=== PATIENT | male | born 1990 | race Caucasian/White ===

== ENCOUNTER 2016-03-26 03:45 | Emergency (ER) | payer SELFPAY ==
[~2016-03-26] VITALS: Ht 180.3 cm; Wt 90.5 kg
[2016-03-26 03:53] VITALS: BP 138/78; PULSE 72; RESP 22; TEMP 98.2; O2SAT 96
--- NOTE | 2016-03-26 04:24 | PD ---
HPI Chief Complaint: Laceration/Skin Injury Time Seen by Provider: 04:22 Travel History International Travel<30 days: No Contact w/Intl Traveler<30days: No Traveled to known affect area: No History of Present Illness HPI 25-year-old [place] white male presents to emergency department for evaluation of a right hand injury which occurred prior to arrival. The patient states that he had put his hand through a glass window. He denies any numbness or tingling. He did sustain multiple lacerations. He also complaints of pain throughout the hand. He is up-to-date with immunizations. States the pain is [id number]. He denies any weakness. PFSH Past Medical History Medical History: Denies Significant Hx Diminished Hearing: No Immunizations Current: Yes Tetanus Vaccination: < 5 Years Past Surgical History Surgical History: No Previous Surgery Social History Alcohol Use: Yes (OCC) Tobacco Use: No Substance Use: No Allergies-Medications (Allergen,Severity, Reaction): Coded Allergies: No Known Allergies (Unverified , 03/26/16) Reported Meds & Prescriptions Reported Meds & Active Scripts Active Diclofenac Sodium DR (Diclofenac Sodium) 50 Mg Tabdr 50 Mg PO TID Keflex (Cephalexin) 500 Mg Cap 500 Mg PO Q6H Review of Systems Except as stated in HPI: all other systems reviewed are Neg Physical Exam Narrative GENERAL: This is a well-nourished, well-developed patient, in no apparent distress. Smells of EtOH and appears intoxicated. SKIN: No rashes, ecchymoses or lesions. Warm and dry. HEAD: Atraumatic. Normocephalic. EYES: PERRL, EOMI, no discharge or injection. No scleral icterus. EARS: Clear NOSE: Nasal turbinates appear normal. THROAT: Mucosa pink and moist. Airway patent. NECK: Trachea midline. supple, moves head freely. LUNGS: Clear to auscultation. CV: Regular in rhythm. ABDOMEN: Soft nontender. EXT: No clubbing cyanosis or edema. Examination of the right hand reveals multiple lacerations over the dorsal surface of the fingers and susan. He is able to open and close his hand freely. He has intact gross sensation and good Refill. There is no limitation of movement. Median/ulnar/radial nerves intact. Data Data Last Documented VS Vital Signs Date Time Temp Pulse Resp B/P Pulse Ox O2 Delivery O2 Flow Rate FiO2 03/26/16 03:53 98.2 72 22 138/78 96 Room Air Orders Hand, Complete ([id number]) (03/26/16 04:17) Cephalexin (Keflex) (03/26/16 05:45) MDM Medical Decision Making Medical Screen Exam Complete: Yes Emergency Medical Condition: Yes Medical Record Reviewed: Yes Interpretation(s) Right hand: Negative for fracture. There is a former body in the volar pad of the thumb Differential Diagnosis MDM: High Differential diagnoses: Fracture, sprain, strain, dislocation, contusion, neurovascular injury Narrative Course Patient given 1 g of Keflex by mouth. X-ray of the right hand is negative for fracture. There is an old foreign body in the thumb but no new foreign body seen. Patient's wounds are cleansed, and sutured closed. There are no evidence of tendon or joint involvement in the patient's wounds. No foreign bodies. Patient's place in a large bulky dressing. This is right hand contusion/finger lacerations Procedures Procedure Narrative LACERATION LOCATION: Right index finger over the dorsal proximal phalanx LENGTH: 1.5 cm NUMBER OF STITCHES/MAYANK: 3 REPAIR: The area of the laceration was prepped with Betadine and sterilely draped. The laceration was infiltrated with 1% lidocaine digital block. The wound was copiously irrigated and explored without evidence of foreign body, tendon injury or neurovascular injury. The wound was closed using 5-0 proline. This was a simple single layer repair. A sterile dressing was applied. Patient tolerated the procedure well. LACERATION LOCATION: Right index finger over the dorsal PIP LENGTH: 1.5 cm NUMBER OF STITCHES/MAYANK: 3 REPAIR: The area of the laceration was prepped with Betadine and sterilely draped. The laceration was infiltrated with 1% lidocaine digital block. The wound was copiously irrigated and explored without evidence of foreign body, tendon injury or neurovascular injury. The wound was closed using 5-0 proline. This was a simple single layer repair. A sterile dressing was applied. Patient tolerated the procedure well. LACERATION LOCATION: Right middle finger finger over the dorsal middle finger PIP LENGTH: 1.5 cm NUMBER OF STITCHES/MAYANK: 3 REPAIR: The area of the laceration was prepped with Betadine and sterilely draped. The laceration was infiltrated with 1% lidocaine digital block. The wound was copiously irrigated and explored without evidence of foreign body, tendon injury or neurovascular injury. The wound was closed using 5-0 proline. This was a simple single layer repair. A sterile dressing was applied. Patient tolerated the procedure well. LACERATION LOCATION: Right index finger over the dorsal ring finger PIP LENGTH: 1.5 cm NUMBER OF STITCHES/MAYANK: 3 REPAIR: The area of the laceration was prepped with Betadine and sterilely draped. The laceration was infiltrated with 1% lidocaine digital block. The wound was copiously irrigated and explored without evidence of foreign body, tendon injury or neurovascular injury. The wound was closed using 5-0 proline. This was a simple single layer repair. A sterile dressing was applied. Patient tolerated the procedure well. LACERATION LOCATION: Dorsum of the right hand over the mid fourth metacarpal. LENGTH: 2 cm NUMBER OF STITCHES/MAYANK: 4 REPAIR: The area of the laceration was prepped with Betadine and sterilely draped. The laceration was infiltrated with 1% lidocaine. The wound was copiously irrigated and explored without evidence of foreign body, tendon injury or neurovascular injury. The wound was closed using 5-0 proline. This was a double single layer repair. A sterile dressing was applied. The patient was advised to keep the dressing clean and dry. Patient tolerated the procedure well. Diagnosis Primary Impression: Right hand and foot pain Additional Impression: Finger laceration Qualified Code: S61.219A - Finger laceration, initial encounter Patient Instructions: General Instructions Departure Forms: Tests/Procedures, Work Release Special Instructions: No use of the right hand 5 days. Additional Instructions: Rest. Elevation. Keep clean and dry. Remove the dressing daily and wash with soap and water and apply Neosporin. Reapply your dressing. Keflex and diclofenac. Recheck with a physician in the next 48 hours or return to the ER if any problems. Sutures out in 12-14 days. Med/Other Pt SpecificInfo: Prescription(s) given, Wound Care Scripts Diclofenac Sodium DR 50 Mg Tabdr50 Mg PO TID #21 TAB Prov:Jass Calhoun MD 03/26/16 Cephalexin (Keflex)500 Mg Icd463 Mg PO Q6H #28 CAP Prov:Jass Calhoun MD 03/26/16 Disposition: 01 DISCHARGE HOME Condition: Stable Elvis Cintron Mar 26, 2016 04:24
--- NOTE | 2016-03-26 05:04 | RADRPT ---
EXAM DATE/TIME: 03/26/2016 04:15 [facility] COMPARISON: No previous studies available for comparison. INDICATIONS : Lacerations to the right hand. MEDICAL HISTORY : None. SURGICAL HISTORY : None. ENCOUNTER: Initial ACUITY: 1 day PAIN SCORE: 8/10 LOCATION: Right hand FINDINGS: Three view examination of the right hand demonstrates no soft tissue swelling, dislocation, or fractu re. The carpal bones appear intact. The interphalangeal and metacarpophalangeal joints are intact. Bony mineralization is normal. CONCLUSION: 1. Negative examination of the hand. Patricio Campos MD on March 26, 2016 at 5:02 Board Certified Radiologist. This report was verified electronically.
[2016-03-26] MEDS ORDERED: DICL50TA3 PO (05:36)
[2016-03-26] MEDS ORDERED: CEPH-460 PO (05:36)
[2016-03-26] MEDS ORDERED: CEPHALEXIN MONOHYDRATE 500 MG CAP PO ONE (05:45)
== END 2016-03-26 05:56 | disposition home or self-care (01) ==
LOC: NEPB 03:45
DX: S61.411A Laceration without foreign body of right hand, initial encounter (principal); S61.210A Laceration without foreign body of right index finger without damage to nail, initial encounter; S61.212A Laceration without foreign body of right middle finger without damage to nail, initial encounter; W25.XXXA Contact with sharp glass, initial encounter; Y99.8 Other external cause status
CPT/HCPCS: 12004; 73130